=== PATIENT | male | born 1945 | race Caucasian/White ===

== ENCOUNTER 2019-02-26 10:25 | Day surgery (SDC) | payer MEDICARE, OTHER ==
[~2019-02-26] VITALS: Ht 165.1 cm; Wt 69.3 kg
[2019-02-26] VITALS (18 sets, daily range): BP systolic 136–153; BP diastolic 59–86; PULSE 56–75; RESP 11–18; Ht 165.1 cm; Wt 69.3 kg
[~2019-02-26 10:25] MED LIST: SEVOFLURANE 15 MIN ONE
[2019-02-26] MEDS ORDERED: LISI40TA3 ORAL (11:23)
[2019-02-26] MEDS ORDERED: SIMV40TA7 ORAL (11:23)
[2019-02-26] MEDS ORDERED: IBUP-1544 ORAL (11:23)
[2019-02-26] MEDS ORDERED: FLUT16SP17 NASAL (11:23)
[2019-02-26] MEDS ORDERED: SIMV40TA2 PO (11:23)
[2019-02-26] MEDS ORDERED: LYR75 PO (11:23)
[2019-02-26] MEDS ORDERED: LEVO50TA7 ORAL (11:23)
[2019-02-26] MEDS ORDERED: LEVO50TA7 PO (11:23)
[2019-02-26] MEDS ORDERED: DICL100G37 TOP (11:23)
[2019-02-26] MEDS ORDERED: LACTATED RINGER'S 1,000 ML IV SCH (11:30)
--- NOTE | 2019-02-26 12:22 | PREAC ---
Date/Time of Note Date/Time of Note DATE: 02/26/19 TIME: 12:21 Anesthesia Eval and Record Evaluation Time Pre-Procedure Interview DATE: 02/26/19 TIME: 12:21 Age 73 Sex male NPO: 8 hrs Preoperative diagnosis microscopic hematuria Planned procedure CYSTOSCOPY, BLADDER BIOPSY, BILATERAL Past Medical History Past Medical History: Includes Cardio: HTN, Dyslipidemia Endo: Hypothyroid Surgery & Anesthesia Issues No known issue Meds Anticoagulation: No Beta Ramírez within 24 hr: No Reason Beta Ramírez not given: Pt. not on B-Ramírez Reported Medications Levothyroxine Sodium* (Levothyroxine Sodium*) 50 Mcg Tablet, 50 MCG PO BEFORE BREAKFAST, #30 TAB 02/26/19 Pregabalin* (Lyrica*) 75 Mg Capsule, 75 MG PO DAILY, CAP 02/26/19 Fluticasone Propionate* (Fluticasone Propionate* Nasal) 50 Mcg/Isabel - 16 Gm Isabel.susp, 2 SPRAYS NASAL DAILY, #1 BOTTLE TO EACH NOSTRIL 02/26/19 Diclofenac Sodium* (Voltaren* Gel) 1% -100 Gm Gel, 2 GM TOP BID, #1 TUB 02/26/19 Simvastatin (Simvastatin) 40 Mg Tablet, 1 TAB ORAL QHS 02/26/19 Lisinopril* (Lisinopril*) 40 Mg Tablet, 1 TAB ORAL DAILY 02/26/19 Ibuprofen* (Ibuprofen*) 800 Mg Tablet, 1 TAB ORAL DAILY 02/26/19 Discontinued Reported Medications Simvastatin* (Zocor*) 40 Mg Tablet, 40 MG PO QHS, #30 TAB 02/26/19 Levothyroxine Sodium* (Levothyroxine Sodium*) 50 Mcg Tablet, 1 TAB ORAL DAILY 02/26/19 Current Medications Lactated Ringer's 1,000 ml @ 30 mls/hr Q24H IV Last administered on 02/26/19at 11:35; Admin Dose 30 MLS/HR; Start 02/26/19 at 11:30 Meds reviewed: Yes Allergies Coded Allergies: No Known Drug Allergies (Verified Allergy, Unknown, 02/26/19) Allergies Reviewed: Yes Labs/Studies Labs Reviewed: Reviewed by anesthesiologist test: N/A Studies: ECG, CXR Pre-procedure Exam Last vitals Vital Signs Date Temp Pulse Resp B/P (MAP) Pulse Ox O2 O2 Flow FiO2 Time Delivery Rate 02/26/19 96.7 75 16 144/86 99 Room Air 11:20 (105) Airway: Adequate mouth opening Mallampati: Mallampati II Teeth: Normal Lung: Normal Heart: Normal ASA Physical Status ASA physical status: 2 Emergency: None Planned Anesthetic General/MAC: ETT Pre-operative Attestations Prior to commencing anesthesia and surgery, the patient was re-evaluated, there was verification of: *The patient's identity *The results of appropriate recent lab work and preoperative vital signs *The above evaluation not changing prior to induction *Anesthetic plan, risk benefits, alternative and complications discussed with patient/family; questions answered; patient/family understands, accepts and wishes to proceed. DARRIUS VASQUEZ Feb 26, 2019 12:22
[2019-02-26] MEDS ORDERED: IOHEXOL 300MG/ML 30 ML BTL ONE (12:26)
[2019-02-26] MEDS ORDERED: DIPHENHYDRAMINE 50 MG INJ IV PRN (12:30)
[2019-02-26] MEDS ORDERED: HYDROmorphONE 1 MG/5 ML IV SYRINGE IV PRN ×2 (12:30)
[2019-02-26] MEDS ORDERED: ONDANSETRON 4 MG INJ IV PRN (12:30)
[2019-02-26] MEDS ORDERED: PROCHLORPERAZINE 10 MG INJ IV PRN (12:30)
[2019-02-26] MEDS ORDERED: MEPERIDINE 25 MG INJ IV PRN (12:30)
[2019-02-26] MEDS ORDERED: FENTAnyl 50 MCG/ML VIAL IV PRN (12:30)
[2019-02-26] MEDS ORDERED: OXYCODONE/ACETAMINOPHEN (5/325) TAB PO PRN (12:30)
[2019-02-26] MEDS ORDERED: MIDAZOLAM 1 MG/ML 2 ML INJ ONE (12:36)
[2019-02-26] MEDS ORDERED: PROPOFOL 20 ML ONE (12:36)
[2019-02-26] MEDS ORDERED: LIDOCAINE 2% (SDV) 5 ML INJ ONE (12:36)
[2019-02-26] MEDS ORDERED: FENTAnyl 50 MCG/ML VIAL ONE ×3 (12:37→13:38)
--- NOTE | 2019-02-26 12:40 | HPN ---
Date/Time of Note Date/Time of Note DATE: 02/26/19 TIME: 12:40 Interval H&P Admission Note Pt. seen H&P reviewed: No system changes DONELL MCCORD MD Feb 26, 2019 12:40
[2019-02-26] MEDS ORDERED: CEFAZOLIN 1 GM INJ ONE (12:42)
[2019-02-26] MEDS ORDERED: DEXAMETHASONE 4 MG/ML 5 ML INJ ONE (13:02)
[2019-02-26] MEDS ORDERED: FAMOTIDINE 20 MG INJ ONE (13:02)
[2019-02-26] MEDS ORDERED: ONDANSETRON 4 MG INJ ONE (13:02)
[2019-02-26] MEDS ORDERED: HYDROCODONE/APAP (5/325) TAB PO PRN (14:30)
[2019-02-26] MEDS ORDERED: hydrALAzine 20 MG INJ IV PRN (14:30)
--- NOTE | 2019-02-26 14:32 | PAC ---
Date/Time of Note Date/Time of Note DATE: 02/26/19 TIME: 14:32 Post-Anesthesia Notes Post-Anesthesia Note Last documented vital signs Vital Signs Date Temp Pulse Resp B/P (MAP) Pulse Ox O2 O2 Flow FiO2 Time Delivery Rate 02/26/19 98.2 14:29 02/26/19 75 16 144/86 99 Room Air 11:20 (105) Activity: WNL Respiratory function: WNL Cardiovascular function: WNL Mental status: Baseline Pain reasonably controlled: Yes Hydration appropriate: Yes Nausea/Vomiting absent: Yes Comments BP: 136/84 HR: 62 RR: 15 T: 98.2 SaO2: 99% MARISABEL SERRA MD Feb 26, 2019 14:32
--- NOTE | 2019-02-26 14:35 | OPR ---
Date/Time of Note Date/Time of Note DATE: 02/26/19 TIME: 14:25 Operative Report Procedure Date: Feb 26, 2019 Preoperative Diagnosis Microscopic hematuria and atypical urine cytology. Postoperative Diagnosis Same pending pathology report, plus the patient does have a large prostate large median lobe protruding into the bladder Operation/Procedure Performed Cystoscopy and multiple bladder biopsies, bilateral retrograde pyelograms and renal washings for cytology Surgeon see signature line Biology Faculty Member sql [place] Anesthesia Type: general Anesthesiologist: MARISABEL SERRA MD Estimated Blood Loss: 0 - 10 ml's Transfusion none Specimen Bladder urine for cytology, right renal washings for cytology, left renal washings for cytology. Bladder biopsy right lateral wall. Bladder biopsy left lateral wall, bladder biopsy right side of trigone near the bladder neck. Grafts/Implants none Complications none Pt Condition Post Procedure: stable Disposition: PACU Indications Persistent microscopic hematuria and atypical urine cytology. Procedure Description Patient was brought to the operating room and given general anesthesia. Timeout was done and the patient was identified by his name, birthdate, the procedure. He was given 2 g of Ancef IV at the start of the procedure. He was then positioned in the lithotomy position and the genital area was prepped and draped in the usual sterile manner. #22 Slovenian cystoscope sheath was then introduced into the bladder and the urine collected for cytology. Then cystoscopy was done and patient was found to have a large median lobe of the prostate protruding into the bladder. The bladder appeared to be very trabeculated and has cellular formations. There was an area of the right side of the bladder lateral to the right ureteral orifice and near the bladder neck that looked suspicious for probably carcinoma in situ that was later on biopsied multiple times. The ureteral orifices were identified and then using a 8 Slovenian cone-tip ureteral c atheter bilateral retrograde pyelograms were done and the collecting system appeared to be normal. Then I advanced a 5 Slovenian open ended into the right ureter all the way up to the kidney and then using normal saline I did wash the right renal area and aspirated the fluid and sent it back to the pathology for cytology also I did the same for the left side. Then I went ahead and did the bladder biopsies first the right lateral wall then the left lateral wall at the end I did the area lateral to the right ureteral orifice and near the bladder neck. All the biopsied areas where electrocoagulated so there will not be any active bleeding. There was a bleeder on the anterior bladder neck the prostatic fossa that I had to electrocoagulate. Because of the large prostate I was concerned about the patient not being able to urinate therefore I inserted a 16 Slovenian Parra catheter and connected to a drainage bag. The patient will be going home with a Parra catheter and come to the office later on to have it removed. Patient tolerated the procedure well and was transferred to the recovery room in a stable and satisfactory condition. DONELL MCCORD MD Feb 26, 2019 14:35
== END 2019-02-26 16:50 | disposition home or self-care (01) ==
LOC: SDS 10:25
PROVIDERS: ATTEND Urology
DX: R31.29 Other microscopic hematuria (principal); I10 Essential (primary) hypertension; E78.5 Hyperlipidemia, unspecified; E03.9 Hypothyroidism, unspecified
CPT/HCPCS: 52204; 74430; 88104; 88305; J0690; J1100; J2250; J2405; J3010; Q9967